=== PATIENT | male | born 1955 ===

== ENCOUNTER 2022-08-07 15:56 | Emergency (ER) | payer MEDICARE, MEDICAID, SELFPAY ==
[2022-08-07 17:06] VITALS: BP 139/68; PULSE 116; RESP 18; TEMP 38.7; O2SAT 98
--- NOTE | 2022-08-07 17:16 | DI.RAD.S_ITS ---
PROCEDURE: XR CHEST 1V INDICATIONS: suspected sepsis TECHNIQUE: One view of the chest was acquired. COMPARISON: None. FINDINGS: Surgical changes and devices: None. Lungs and pleura: Moderate airspace opacity at the left lung base. Mild patchy bilateral perihilar opacity. No pleural effusions or pneumothorax. Mediastinum: Mediastinal contours appear normal. Heart size is normal. Bones and chest wall: No suspicious bony lesions. Overlying soft tissues appear unremarkable. IMPRESSION: Bilateral pneumonia. Continued plain film surveillance is recommended to ensure resolution, and to exclude underlying or central malignancy. Dictated by: Jefe Ponce M.D. on 08/07/2022 at 18:13 Approved by: Jefe Ponce M.D. on 08/07/2022 at 18:13
[2022-08-07 17:56] VITALS: TEMP 38.4
[2022-08-07] MEDS: IBUPROFEN 400 MG TABLET 800 MG PO (17:56)
[2022-08-07 18:11] LABS: INR 1.3 (0.9-1.3); Prothrombin Time 14.8 SECONDS (10.1-12.7)
[2022-08-07 18:14] LABS: PTT Partial Thromboplastin Tim 32 SECONDS (26-36)
[2022-08-07 18:14] LABS: RBC Urine 5-10/HPF (0-5/HPF)
[2022-08-07 18:15] LABS: Alanine Aminotransferase 24 IU/L (<50); Albumin 4.5 g/dL (3.5-5.0); Albumin Globulin Ratio 1.2 (1.0-2.8); Alkaline Phosphatase 93 U/L (38-126); Aspartate Aminotransferase 24 IU/L (17-59); BUN Creatinine Ratio 15.7 (6-22); Bilirubin Total 1.3 mg/dL (0.2-1.3); Blood Urea Nitrogen 17 mg/dL (9-20); Calcium 8.9 mg/dL (8.4-10.2); Carbon Dioxide 22 mmol/L (22-32); Chloride 98 mmol/L (98-107); Estimated Glomerular Filt Rate > 60 mL/min (>60); Globulin 3.9 g/dL (1.7-4.1); Glucose 163 mg/dL (80-110); HEMOLYSIS < 15 (0-50); Lactate (Lactic Acid) 1.5 mmol/L (0.7-2.1); Lipase 28 U/L (23-300); Potassium 4.3 mmol/L (3.4-5.1); Sodium 136 mmol/L (137-145); Total Protein 8.4 g/dL (6.3-8.2)
[2022-08-07 18:15] LABS: Bacteria Urine Moderate (10-30); Culture Indicated Urine Specimen Cultured; WBC Urine >100/HPF (0-5/HPF)
[2022-08-07 18:18] LABS: Add Manual Diff / Slide Review NO; Basophils Absolute Auto 100 /uL (0-100); Basophils Percent Auto 0.2 % (0-2); Eosinophils Absolute Auto 0 /uL (0-450); Hematocrit 41.5 % (41-53); Hemoglobin 13.8 g/dL (13.5-17.5); Lymphocytes Absolute Auto 600 /uL (1100-4500); Lymphocytes Percent Auto 2.4 % (25-40); Mean Corpuscular HGB Conc 33.3 % (30-36); Mean Corpuscular Hemoglobin 29.6 PG (26-34); Mean Corpuscular Volume 88.7 fL (80-100); Monocytes Absolute Auto 700 /uL (0-900); Monocytes Percent Auto 2.8 % (3-14); Neutrophils Absolute Auto 22700 /uL (1500-7000); Neutrophils Percent Auto 94.6 % (50-75); Platelet Count 331 X10^3/uL (150-400); Red Blood Cell Count 4.68 X10^6/uL (4.5-5.9); Red Cell Distribution Width 14.4 % (11.6-14.8)
[2022-08-07 18:31] LABS: Procalcitonin 1.27 ng/mL (<0.5)
--- NOTE | 2022-08-07 21:45 | ED_ITS ---
HPI - General Adult General Chief complaint: Urogenital-Male Stated complaint: Fever, Chills, Pain while urinating Time Seen by Provider: 08/07/22 20:51 Source: patient Mode of arrival: Ambulatory Limitations: language barrier History of Present Illness HPI narrative: Patient is a 66-year-old male. Translation line was used to talk with the patient. He does speak Thai. He is here for evaluation of approximately 1 week of pain and burning with urination and chills and fevers. He denies chest pain. Denied abdominal pain. Denied nausea vomiting. Denied cough. By the time I evaluated him he had received ibuprofen in triage and he states that this improved his symptoms tremendously to the point where he was actually feeling fairly well. No skin rashes. A problems with bowel movements. No nausea or vomiting. Related Data Previous Rx's Medication Instructions Recorded levofloxacin 750 mg tablet 750 mg PO DAILY 4 days #4 tabs 08/07/22 Allergies Allergy/AdvReac Type Severity Reaction Status Date / Time No Known Drug Allergies Allergy Verified 08/07/22 17:16 Review of Systems Constitutional Constitutional: Reports system reviewed and no additional complaints, except as documented ENT Ears, Nose, Mouth, and Throat: Reports system reviewed and no additional co mplaints, except as documented Cardiovascular Cardiovascular: Reports system reviewed and no additional complaints, except as documented Respiratory Respiratory: Reports system reviewed and no additional complaints, except as documented Gastrointestinal Gastrointestinal: Reports system reviewed and no additional complaints, except as documented Genitourinary Genitourinary: Reports system reviewed and no additional complaints, except as documented Integumentary/Breasts Skin/Breast: Reports system reviewed and no additional complaints, except as documented Hematologic/Lymphatic On Anticoagulants: No Patient History Social History Smoking Status: Current every day smoker Smoking Status: Current every day smoker Substance Use Type: does not use Exam Initial Vital Signs Initial Vital Signs: Vital Signs Temperature 101.6 F H 08/07/22 17:06 Pulse Rate 116 H 08/07/22 17:06 Respiratory Rate 18 08/07/22 17:06 Blood Pressure 139/68 08/07/22 17:06 Pulse Oximetry 98 08/07/22 17:06 Oxygen Delivery Method 08/07/22 17:[address] [facility] Head: normal to inspection and normocephalic Resp Effort & Inspection: normal respiratory effort Auscultation: clear to auscultation bilaterally Cardio Rate: regular rate Rhythm: regular rhythm GI Inspection: normal to inspection and non-distended Palpation: soft and No tender Back/Spine/Pelvis Back: No CVA tenderness Skin General: no rashes or lesions noted Neuro General: patient alert, patient awake and moves all extremities Extrem General: normal to inspection and capillary refill normal Course Orders Ordered: ED Orders 08/07/22 22:44 Blood Culture Stat Discontinued Medications Sodium Chloride (Normal Saline 0.9%) 1,000 mls @ 1,000 mls/hr IV BOLUS ONE Stop: 08/07/22 18:15 Last Infusion: 08/07/22 23:17 Dose: 0 mls/hr Documented By: Admin: 08/07/22 22:21 Dose: 1,000 mls/hr Documented By: SUDEEP Ibuprofen (Ibuprofen 400 Mg Tablet) 800 mg PO NOW ONE Stop: 08/07/22 17:18 Last Admin: 08/07/22 17:56 Dose: 800 mg Documented By: STEPHANY Levofloxacin (Levofloxacin 250 Mg Tablet) 750 mg PO NOW ONE Stop: 08/07/22 20:52 Last Admin: 08/07/22 22:52 Dose: 750 mg Documented By: SUDEEP Ondansetron HCl (Ondansetron 4 Mg/2 Ml Inj) 4 mg IV NOW PRN PRN Reason: Nausea And Vomiting Ondansetron HCl (Ondansetron 4 Mg Odt) 4 mg SL NOW PRN PRN Reason: Nausea And Vomiting Vital Signs Vital signs: Vital Signs - 8 hr 08/07/22 23:07 08/07/22 23:09 Temperature 98.2 F Pulse Rate 102 H Respiratory Rate 16 Blood Pressure 112/61 Pulse Oximetry 97 Oxygen Delivery Method Room Air Medical Decision Making Lab Data Lab results reviewed: Yes I reviewed the patient's lab results. Result diagrams: 08/07/22 17:50 08/07/22 17:50 Labs: Lab Results 08/07/22 08/07/22 08/07/22 Range/Units 17:20 17:50 17:50 WBC 24.0 H (4.5-11.0) X10^3/uL RBC 4.68 (4.5-5.9) X10^6/uL Hgb 13.8 (13.5-17.5) g/dL Hct 41.5 (41-53) % MCV 88.7 (80-100) fL MCH 29.6 (26-34) PG MCHC 33.3 (30-36) % RDW 14.4 (11.6-14.8) % Plt Count 331 (150-400) X10^3/uL Neut % (Auto) 94.6 H (50-75) % Lymph % (Auto) 2.4 L (25-40) % Sullivan % (Auto) 2.8 L (3-14) % Eos % (Auto) 0.0 L (2-4) % Baso % (Auto) 0.2 (0-2) % Neut # (Auto) 58379 H (9036-2641) /uL Lymph # (Auto) 600 L (0372-8902) /uL [place] # (Auto) 700 (0-900) /uL Eos # (Auto) 0 (0-450) /uL Baso # (Auto) 100 (0-100) /uL PT 14.8 H (10.1-12.7) SECONDS INR 1.3 (0.9-1.3) APTT 32 (26-36) SECONDS Sodium (137-145) mmol/L Potassium (3.4-5.1) mmol/L Chloride (98-107) mmol/L Carbon Dioxide (22-32) mmol/L BUN (9-20) mg/dL Creatinine (0.66-1.25) mg/dL Estimated GFR (>60) mL/min BUN/Creatinine Ratio (6-22) Glucose (80-110) mg/dL Lactate (0.7-2.1) mmol/L Calcium (8.4-10.2) mg/dL Total Bilirubin (0.2-1.3) mg/dL AST (17-59) IU/L ALT (<50) IU/L Alkaline Phosphatase (38-126) U/L Total Protein (6.3-8.2) g/dL Albumin (3.5-5.0) g/dL Globulin (1.7-4.1) g/dL Albumin/Globulin Ratio (1.0-2.8) Lipase (23-300) U/L Procalcitonin (<0.5) ng/mL Urine RBC 5-10/hpf H (0-5/HPF) Urine WBC >100/hpf H (0-5/HPF) Urine Bacteria Moderate (10-30) H (None) Ur Culture Indicated? Specimen cultured 08/07/22 08/07/22 Range/Units 17:50 17:50 WBC (4.5-11.0) X10^3/uL RBC (4.5-5.9) X10^6/uL Hgb (13.5-17.5) g/dL Hct (41-53) % MCV (80-100) fL MCH (26-34) PG MCHC (30-36) % RDW (11.6-14.8) % Plt Count (150-400) X10^3/uL Neut % (Auto) (50-75) % Lymph % (Auto) (25-40) % Sullivan % (Auto) (3-14) % Eos % (Auto) (2-4) % Baso % (Auto) (0-2) % Neut # (Auto) (1290-3707) /uL Lymph # (Auto) (3330-6906) /uL Sullivan # (Auto) (0-900) /uL Eos # (Auto) (0-450) /uL Baso # (Auto) (0-100) /uL PT (10.1-12.7) SECONDS INR (0.9-1.3) APTT (26-36) SECONDS Sodium 136 L (137-145) mmol/L Potassium 4.3 (3.4-5.1) mmol/L Chloride 98 (98-107) mmol/L Carbon Dioxide 22 (22-32) mmol/L BUN 17 (9-20) mg/dL Creatinine 1.08 (0.66-1.25) mg/dL Estimated GFR > 60 (>60) mL/min BUN/Creatinine Ratio 15.7 (6-22) Glucose 163 H (80-110) mg/dL Lactate 1.5 (0.7-2.1) mmol/L Calcium 8.9 (8.4-10.2) mg/dL Total Bilirubin 1.3 (0.2-1.3) mg/dL AST 24 (17-59) IU/L ALT 24 (<50) IU/L Alkaline Phosphatase 93 (38-126) U/L Total Protein 8.4 H (6.3-8.2) g/dL Albumin 4.5 (3.5-5.0) g/dL Globulin 3.9 (1.7-4.1) g/dL Albumin/Globulin Ratio 1.2 (1.0-2.8) Lipase 28 (23-300) U/L Procalcitonin 1.27 H (<0.5) ng/mL Urine RBC (0-5/HPF) Urine WBC (0-5/HPF) Urine Bacteria (None) Ur Culture Indicated? Urine Dip Bedside Urine Glucose Negative Bedside Urine Bilirubin - Negative Bedside Urine Ketone - Negative Urine Specific [employer] [place] 1.015 Bedside Urine Occult Blood + Bedside Urine pH 6.0 Bedside Urine Protein ++ 100 Bedside Urine Urobilinogen - Negative Bedside Urine Nitrite - Negative Bedside Urine Leukocytes - Negative Esterase Point of care testing: Urine Dip Bedside Urine Glucose Negative Bedside Urine Bilirubin - Negative Bedside Urine Ketone - Negative Urine Specific [employer] [place] 1.015 Bedside Urine Occult Blood + Bedside Urine pH 6.0 Bedside Urine Protein ++ 100 Bedside Urine Urobilinogen - Negative Bedside Urine Nitrite - Negative Bedside Urine Leukocytes - Negative Esterase Imaging Data Chest x-ray: Radiologist's Impression: [place] [address] XRay Report Signed Patient: Anna Bolden MR#: [id number] : 1955 Acct:[id number] Age/Sex: 66 / M Date of Service: 08/07/22 Loc: Accession Number: [id number] ?? Procedure: XR chest 1V Ordering Provider: Aminata Wetzel D.O. PROCEDURE:? XR CHEST 1V ? INDICATIONS:? suspected sepsis ? TECHNIQUE:? One view of the chest was acquired.? ? COMPARISON:? None. ? FINDINGS:? ? Surgical changes and devices:? None.? ? Lungs and pleura:? Moderate airspace opacity at the left lung base.? Mild patchy bilateral perihilar opacity.? No pleural effusions or pneumothorax.? ? Mediastinum:? Mediastinal contours appear normal.? Heart size is normal.? ? Bones and chest wall:? No suspicious bony lesions.? Overlying soft tissues appear unremarkable.? ? IMPRESSION:? Bilateral pneumonia. Continued plain film surveillance is recommended to ensure resolution, and to exclude underlying or central malignancy.? ? ? Dictated by: Jefe Ponce M.D. on 08/07/2022 at 18:13 ? ? Approved by: Jefe Ponce M.D. on 08/07/2022 at 18:13?? MDM Narrative Medical decision making narrative: The translation line was used for my evaluation of the patient. He does state that the medication that he received in triage which was ibuprofen made him feel much better has the chills in the fevers were gone. Triage note did mention abdominal discomfort however he stated that he was not having any abdominal discomfort during my evaluation. He was having UTI like symptoms today that have been going on for the past week and he does have bacteria and white blood cells. His chest x-ray also shows signs of pneumonia however he is clear lungs and has no cough and no shortness of breath. Will discharge patient home with Levaquin as this would treat a pneumonia and also treat a urinary tract infection. Patient does have a leukocytosis but is nontoxic appearing and is tolerating oral intake. Lactate is unremarkable. Patient was given return precautions and he did expressed understanding of this. His 1st dose of antibiotics was given in the emergency department. A prescription was sent to the pharmacy of his choice. Discharge Plan Departure Patient Disposition: Home Clinical Impression: Urinary tract infection, Pneumonia Instructions: DI for Urinary Tract Infection (UTI) Activity Restrictions/Additional Instructions: Take the antibiotics as directed. They were sent to [facility]. You can take Motrin/ibuprofen or Tylenol/acetaminophen for any fevers or body aches. Return to the emergency department for any new or worsening symptoms. Prescriptions: New levofloxacin 750 mg tablet 750 mg PO DAILY 4 Days Qty: 4 0RF Stand Alone Forms: Patient Portal/API
[2022-08-07] MEDS: SODIUM CHLORIDE 0.9% 1,000 ML 1000 ML IV (22:21)
[2022-08-07] MEDS: levoFLOXacin 250 MG TABLET 750 MG PO (22:52)
[2022-08-07 23:07] VITALS: BP 112/61; PULSE 102; RESP 16; O2SAT 97
[2022-08-07 23:09] VITALS: TEMP 36.8
--- NOTE | 2022-08-09 14:17 | PC.NURSE ---
Pt's family member called stating that patient had taken all of the antibiotics at once as he didn't understand how to take them. I returned call to [phone] and there was no answer. I left a message that patient should return to ED. Dr. Eli aware of situation.
== END 2022-08-07 23:24 | disposition home or self-care (01) ==
PROVIDERS: Emergency Medicine; Emergency Provider Emergency Medicine
DX: N39.0 Urinary tract infection, site not specified (principal); J18.9 Pneumonia, unspecified organism
CPT/HCPCS: 36415; 71045; 80053; 81003; 81015; 83605; 83690; 84145; 85025; 85610; 85730; 87040; 87077; 87086; 87186; 96360; 99284

== ENCOUNTER 2022-08-10 17:31 | Observation (INO) | payer MEDICARE, MEDICAID, SELFPAY ==
[2022-08-10] VITALS (15 sets, daily range): BP systolic 104–134; BP diastolic 53–64; PULSE 74–90; RESP 17–27; TEMP 36.6; O2SAT 96–100
--- NOTE | 2022-08-10 18:06 | DI.RAD.S_ITS ---
PROCEDURE: XR CHEST 1V INDICATIONS: Evaluate for PNA TECHNIQUE: One view of the chest was acquired. COMPARISON: [facility], CR, XR CHEST 1V, 08/07/2022, 17:57. FINDINGS: Surgical changes and devices: None. Lungs and pleura: Left basilar retrocardiac consolidation is unchanged. Patchy airspace disease in the right infrahilar region is similar as well. No pleural effusions or pneumothorax. Mediastinum: Mediastinal contours appear normal. Heart size is normal. Bones and chest wall: No suspicious bony lesions. Overlying soft tissues appear unremarkable. IMPRESSION: Stable exam with bilateral airspace disease, much more prominent on the left. Dictated by: Vinay Diamond M.D. on 08/10/2022 at 18:29 Approved by: Vinay Diamond M.D. on 08/10/2022 at 18:31
[2022-08-10 18:25] LABS: Add Manual Diff / Slide Review NO; Basophils Absolute Auto 0 /uL (0-100); Basophils Percent Auto 0.4 % (0-2); Eosinophils Absolute Auto 0 /uL (0-450); Eosinophils Percent Auto 0.3 % (2-4); Hematocrit 39.9 % (41-53); Hemoglobin 13.7 g/dL (13.5-17.5); Lymphocytes Absolute Auto 600 /uL (1100-4500); Lymphocytes Percent Auto 6.5 % (25-40); Mean Corpuscular HGB Conc 34.2 % (30-36); Mean Corpuscular Hemoglobin 29.9 PG (26-34); Mean Corpuscular Volume 87.3 fL (80-100); Monocytes Absolute Auto 600 /uL (0-900); Monocytes Percent Auto 6.5 % (3-14); Neutrophils Absolute Auto 7600 /uL (1500-7000); Neutrophils Percent Auto 86.3 % (50-75); Platelet Count 221 X10^3/uL (150-400); Red Blood Cell Count 4.57 X10^6/uL (4.5-5.9); Red Cell Distribution Width 14.5 % (11.6-14.8); White Blood Cell Count 8.8 X10^3/uL (4.5-11.0)
[2022-08-10 18:33] LABS: Appearance Urine UA CLEAR; Bilirubin Urine UA NEGATIVE (NEGATIVE); Color Urine UA YELLOW; Glucose Urine UA NEGATIVE (Negative); Ketones Urine UA NEGATIVE (NEGATIVE); Leukocyte Esterase Urine UA TRACE (NEGATIVE); Nitrite Urine UA NEGATIVE (Negative); Occult Blood Urine UA 2+ (Negative); Protein Urine UA 1+ (Negative)
[2022-08-10 18:42] LABS: Lipase 41 U/L (23-300)
[2022-08-10 18:44] LABS: Alanine Aminotransferase 40 IU/L (<50); Albumin 3.6 g/dL (3.5-5.0); Albumin Globulin Ratio 0.9 (1.0-2.8); Alkaline Phosphatase 125 U/L (38-126); Aspartate Aminotransferase 41 IU/L (17-59); BUN Creatinine Ratio 15.4 (6-22); Bilirubin Total 0.7 mg/dL (0.2-1.3); Blood Urea Nitrogen 19 mg/dL (9-20); Calcium 8.3 mg/dL (8.4-10.2); Carbon Dioxide 23 mmol/L (22-32); Chloride 99 mmol/L (98-107); Estimated Glomerular Filt Rate > 60 mL/min (>60); Glucose 116 mg/dL (80-110); HEMOLYSIS < 15 (0-50); Lactate (Lactic Acid) 1.3 mmol/L (0.7-2.1); Potassium 3.5 mmol/L (3.4-5.1); Sodium 135 mmol/L (137-145); Total Protein 7.6 g/dL (6.3-8.2)
[2022-08-10 18:54] LABS: Bacteria Urine Few (2-10); Culture Indicated Urine Specimen Cultured; RBC Urine 0-1/HPF (0-5/HPF); Squamous Epithelial Cell Urine 1-5 /HPF (0-5/HPF); WBC Urine 10-30/HPF (0-5/HPF)
[2022-08-10 19:00] LABS: Procalcitonin 4.25 ng/mL (<0.5)
--- NOTE | 2022-08-10 19:51 | ED_ITS ---
HPI - General Adult General Chief complaint: Urogenital-Male Stated complaint: urinary tract infection, pneumonia Time Seen by Provider: 08/10/22 17:57 Source: patient Mode of arrival: Ambulatory Limitations: language barrier History of Present Illness HPI narrative: Patient is a 66-year-old male. Is English speaking only. Was evaluated by myself here in the emergency department several days ago. Was discharged home with a diagnosis of urinary tract infection. Was given a prescription for Levaquin. After being discharged his blood cultures resulted as positive. He was contacted a couple days ago and told to come back to the emergency department. He arrives today because that phone call. He states that overall he feels okay but is still having fevers. It appears that he took all of his antibiotics at 1 time rather than taking it 1 time a day as directed. He denies chest pain or shortness of breath. No abdominal pain. No vomiting. Language line was used for interview. Related Data Allergies Allergy/AdvReac Type Severity Reaction Status Date / Time No Known Drug Allergies Allergy Verified 08/10/22 17:52 Review of Systems Constitutional Constitutional: Reports chills, Reports fever(s) and Reports malaise Cardiovascular Cardiovascular: Denies chest pain and Denies dyspnea Respiratory Respiratory: Denies dyspnea Gastrointestinal Gastrointestinal: Denies abdominal pain and Denies vomiting Genitourinary Genitourinary: Denies dysuria Musculoskeletal Musculoskeletal: Reports myalgias Integumentary/Breasts Skin/Breast: Denies rash Hematologic/Lymphatic On Anticoagulants: No Patient History Social History Smoking Status: Current every day smoker Smoking Status: Current every day smoker alcohol intake frequency: other Substance Use Type: does not use Exam Initial Vital Signs Initial Vital Signs: Vital Signs Temperature 98 F 08/10/22 17:40 Pulse Rate 90 08/10/22 17:40 Respiratory Rate 17 08/10/22 17:40 Blood Pressure 130/62 08/10/22 17:40 Pulse Oximetry 98 08/10/22 17:40 Oxygen Delivery Method 08/10/22 17:40 Const General: cooperative, comfortable and No ill appearing HENMT Head: normal to inspection and normocephalic Resp Effort & Inspection: normal respiratory effort Auscultation: clear to auscultation bilaterally Cardio Rate: regular rate Rhythm: regular rhythm GI Inspection: normal to inspection and non-distended Palpation: soft Skin General: no rashes or lesions noted Neuro General: patient alert, patient awake and moves all extremities Extrem General: normal to inspection and capillary refill normal Psych Appearance: grossly normal and well kempt Course Orders Ordered: ED Orders 08/10/22 18:06 XR chest 1V Stat 08/10/22 18:10 Complete Blood Count AUTO DIFF Stat Comprehensive Metabolic Panel Stat Lactate (Lactic Acid) Stat Lipase Stat Procalcitonin Stat Urinalysis and Microscopic Stat Urine Culture Stat 08/10/22 18:14 EKG-12 Lead Routine EKG-12 Lead Stat 08/10/22 18:55 Blood Culture Stat Discontinued Medications Ceftriaxone Sodium 1,000 mg/ (Sodium Chloride) 100 mls @ 200 mls/hr IV NOW ONE Stop: 08/10/22 19:15 Last Infusion: 08/10/22 20:27 Dose: 0 mls/hr Documented By: Admin: 08/10/22 19:52 Dose: 200 mls/hr Documented By: ISMAEL Vital Signs Vital signs: Vital Signs - 8 hr 08/10/22 17:40 08/10/22 18:01 08/10/22 18:01 Temperature 98 F Pulse Rate 90 80 Respiratory Rate 17 22 Blood Pressure 130/62 113/57 L Pulse Oximetry 98 100 Oxygen Delivery Method Room Air 08/10/22 18:30 08/10/22 18:30 08/10/22 18:54 Temperature Pulse Rate 76 Respiratory Rate 21 Blood Pressure 104/55 L 104/53 L Pulse Oximetry 100 Oxygen Delivery Method Room Air 08/10/22 18:54 08/10/22 19:00 08/10/22 19:00 Temperature Pulse Rate 74 74 Respiratory Rate 24 21 Blood Pressure 104/55 L Pulse Oximetry 100 100 Oxygen Delivery Method 08/10/22 19:30 08/10/22 19:30 08/10/22 20:00 Temperature Pulse Rate 74 Respiratory Rate 20 Blood Pressure 113/57 L 117/58 L Pulse Oximetry 99 Oxygen Delivery Method 08/10/22 20:00 Temperature Pulse Rate 77 Respiratory Rate 17 Blood Pressure Pulse Oximetry 100 Oxygen Delivery Method Room Air Medical Decision Making Lab Data Lab results reviewed: Yes I reviewed the patient's lab results. Result diagrams: 08/10/22 18:10 08/10/22 18:10 Labs: Lab Results 08/10/22 08/10/22 08/10/22 Range/Units 18:10 18:10 18:10 WBC 8.8 (4.5-11.0) X10^3/uL RBC 4.57 (4.5-5.9) X10^6/uL Hgb 13.7 (13.5-17.5) g/dL Hct 39.9 L (41-53) % MCV 87.3 (80-100) fL MCH 29.9 (26-34) PG MCHC 34.2 (30-36) % RDW 14.5 (11.6-14.8) % Plt Count 221 (150-400) X10^3/uL Neut % (Auto) 86.3 H (50-75) % Lymph % (Auto) 6.5 L (25-40) % Sunflower % (Auto) 6.5 (3-14) % Eos % (Auto) 0.3 L (2-4) % Baso % (Auto) 0.4 (0-2) % Neut # (Auto) 7600 H (5171-1532) /uL Lymph # (Auto) 600 L (7509-0510) /uL Sunflower # (Auto) 600 (0-900) /uL Eos # (Auto) 0 (0-450) /uL Baso # (Auto) 0 (0-100) /uL Sodium 135 L (137-145) mmol/L Potassium 3.5 (3.4-5.1) mmol/L Chloride 99 (98-107) mmol/L Carbon Dioxide 23 (22-32) mmol/L BUN 19 (9-20) mg/dL Creatinine 1.23 (0.66-1.25) mg/dL Estimated GFR > 60 (>60) mL/min BUN/Creatinine Ratio 15.4 (6-22) Glucose 116 H (80-110) mg/dL Lactate 1.3 (0.7-2.1) mmol/L Calcium 8.3 L (8.4-10.2) mg/dL Total Bilirubin 0.7 (0.2-1.3) mg/dL AST 41 (17-59) IU/L ALT 40 (<50) IU/L Alkaline Phosphatase 125 (38-126) U/L Total Protein 7.6 (6.3-8.2) g/dL Albumin 3.6 (3.5-5.0) g/dL Globulin 4.0 (1.7-4.1) g/dL Albumin/Globulin Ratio 0.9 L (1.0-2.8) Lipase (23-300) U/L Procalcitonin (<0.5) ng/mL Urine Color Urine Appearance Urine pH (4.5-8.0) Ur Specific [place] (1.000-1.035) Urine Protein (Negative) Urine Glucose (UA) (Negative) g/dL Urine Ketones (NEGATIVE) Urine Occult Blood (Negative) Urine Nitrate (Negative) Urine Bilirubin (NEGATIVE) Urine Urobilinogen (0.2) E.U./dL Ur Leukocyte Esterase (NEGATIVE) Urine RBC (0-5/HPF) Urine WBC (0-5/HPF) Ur Squamous Epith Cells (0-5/HPF) Urine Bacteria (None) Ur Culture Indicated? 08/10/22 08/10/22 Range/Units 18:10 18:10 WBC (4.5-11.0) X10^3/uL RBC (4.5-5.9) X10^6/uL Hgb (13.5-17.5) g/dL Hct (41-53) % MCV (80-100) fL MCH (26-34) PG MCHC (30-36) % RDW (11.6-14.8) % Plt Count (150-400) X10^3/uL Neut % (Auto) (50-75) % Lymph % (Auto) (25-40) % Sunflower % (Auto) (3-14) % Eos % (Auto) (2-4) % Baso % (Auto) (0-2) % Neut # (Auto) (7732-9674) /uL Lymph # (Auto) (1771-7768) /uL Sunflower # (Auto) (0-900) /uL Eos # (Auto) (0-450) /uL Baso # (Auto) (0-100) /uL Sodium (137-145) mmol/L Potassium (3.4-5.1) mmol/L Chloride (98-107) mmol/L Carbon Dioxide (22-32) mmol/L BUN (9-20) mg/dL Creatinine (0.66-1.25) mg/dL Estimated GFR (>60) mL/min BUN/Creatinine Ratio (6-22) Glucose (80-110) mg/dL Lactate (0.7-2.1) mmol/L Calcium (8.4-10.2) mg/dL Total Bilirubin (0.2-1.3) mg/dL AST (17-59) IU/L ALT (<50) IU/L Alkaline Phosphatase (38-126) U/L Total Protein (6.3-8.2) g/dL Albumin (3.5-5.0) g/dL Globulin (1.7-4.1) g/dL Albumin/Globulin Ratio (1.0-2.8) Lipase 41 (23-300) U/L Procalcitonin 4.25 H (<0.5) ng/mL Urine Color Yellow Urine Appearance Clear Urine pH 6.0 (4.5-8.0) Ur Specific [place] 1.010 (1.000-1.035) Urine Protein 1+ H (Negative) Urine Glucose (UA) Negative (Negative) g/dL Urine Ketones Negative (NEGATIVE) Urine Occult Blood 2+ H (Negative) Urine Nitrate Negative (Negative) Urine Bilirubin Negative (NEGATIVE) Urine Urobilinogen 1.0 (0.2) E.U./dL Ur Leukocyte Esterase Trace H (NEGATIVE) Urine RBC 0-1/hpf (0-5/HPF) Urine WBC 10-30/hpf H (0-5/HPF) Ur Squamous Epith Cells 1-5 /hpf (0-5/HPF) Urine Bacteria Few (2-10) H (None) Ur Culture Indicated? Specimen cultured Imaging Data Chest x-ray: Radiologist's Impression: [address] [address] XRay Report Signed Patient: Anna Bolden MR#: [id number] : 1955 Acct:[id number] Age/Sex: 66 / M Date of Service: 08/10/22 Loc: ED Accession Number: [id number] ?? Procedure: XR chest 1V Ordering Provider: Jorge L Kaur D.O. PROCEDURE:? XR CHEST 1V ? INDICATIONS:? Evaluate for PNA ? TECHNIQUE:? One view of the chest was acquired.? ? COMPARISON:? [facility], CR, XR CHEST 1V, 08/07/2022, 17:57. ? FINDINGS:? ? Surgical changes and devices:? None.? ? Lungs and pleura:? Left basilar retrocardiac consolidation is unchanged.? Patchy airspace disease in the right infrahilar region is similar as well.? No pleural effusions or pneumothorax.? ? Mediastinum:? Mediastinal contours appear normal.? Heart size is normal.? ? Bones and chest wall:? No suspicious bony lesions.? Overlying soft tissues appear unremarkable.? ? IMPRESSION:? Stable exam with bilateral airspace disease, much more prominent on the left. ? ? Dictated by: Vinay Diamond M.D. on 08/10/2022 at 18:29 ? ? Approved by: Vinay Diamond M.D. on 08/10/2022 at 18:31? ECG Data Attestation: I personally reviewed and interpreted this ECG as follows: Interpretation: Sinus rhythm Ventricular rate is 77 Normal axis Normal QRS Normal QTC No ST T wave changes MDM Narrative Medical decision making narrative: Patient's white blood cell count has improved but still has an elevated procalcitonin is still having chills and fevers and body aches. Were all he does appear well but given his positive blood cultures admission to the hospital his required for IV antibiotics. The translation line was used for this and he expressed understanding. Discussed the case with Dr. Ballard who will admit for further evaluation and treatment. Discharge Plan Departure Patient Disposition: Admitted As Inpatient Clinical Impression: Urinary tract infection, Bacteremia Admit Date/Time: 08/10/22 20:29 Admit Provider: Hung Ballard
[2022-08-10] MEDS: cefTRIAXone 1,000 MG in SODIUM CHLORIDE 0.9% 100 ML 200 MG IV (19:52)
--- NOTE | 2022-08-10 21:00 | PM.HP.1 ---
History of Present Illness History of Present Illness Date Patient Seen: 08/10/22 Time Patient Seen: 21:00 Chief complaint: urinary tract infection, pneumonia Narrative: Mr. Bolden is a 66M who denies significant PMH who presents back to the hospital for positive blood cultures. He presented to the hospital a few days ago with dysuria, fever, chills. He was diagnosed with a UTI and was discharged with antibiotics. After leaving his blood culture turned back positive, was was whiting sensitive E. coli, and phone message was left for him. Apparently after discharged the patient misunderstood how much antibiotic he was supposed to take, and took all the antibiotic at one time. He presents now due to the request to return back. He was continued to have some fevers/chills. Dysuria is improved. No abdominal pain, nausea or vomiting. No shortness of breath. In the ED workup was done, vitals notable for Tmax 101.6, vitals otherwise normal. Labs notable for WBC 8.8, hgb 13.7, plts 221. Creatinine 1.23. Procal 4.25. UA with bacteria, WBC, and leuk esterase. Chest xray with bilateral airspace disease. He was given ceftriaxone and admitted for further treatment Medical history: denies any medical problems Social history: smokes cigarettes daily Family history: denies any cardiac or pulmonary disease in the family Patient History Family & Social History Safety & Behavioral: Feels Safe in Current Yes Environment Been Physically Hurt or No Threatened By a Person Tobacco & Substance use: Smoking Status Current every day smoker alcohol intake frequency other Substance Use Type does not use Meds Home Medications and Allergies Allergies Allergy/AdvReac Type Severity Reaction Status Date / Time No Known Drug Allergies Allergy Verified 08/10/22 17:52 Review of Systems Review of Systems Narrative: 14 ystems reviewed and negative aisde from what is noted in HPI Exam Vital Signs (past 8 hours): - 08/10/22 17:40 08/10/22 18:01 08/10/22 18:01 Temperature 98 F Pulse Rate 90 80 Respiratory Rate 17 22 Blood Pressure 130/62 113/57 L Pulse Oximetry 98 100 Oxygen Delivery Method Room Air 08/10/22 18:30 08/10/22 18:30 08/10/22 18:54 Temperature Pulse Rate 76 Respiratory Rate 21 Blood Pressure 104/55 L 104/53 L Pulse Oximetry 100 Oxygen Delivery Method Room Air 08/10/22 18:54 08/10/22 19:00 08/10/22 19:00 Temperature Pulse Rate 74 74 Respiratory Rate 24 21 Blood Pressure 104/55 L Pulse Oximetry 100 100 Oxygen Delivery Method 08/10/22 19:30 08/10/22 19:30 08/10/22 20:00 Temperature Pulse Rate 74 Respiratory Rate 20 Blood Pressure 113/57 L 117/58 L Pulse Oximetry 99 Oxygen Delivery Method 08/10/22 20:00 08/10/22 20:30 08/10/22 20:31 Temperature Pulse Rate 77 82 83 Respiratory Rate 17 23 27 H Blood Pressure Pulse Oximetry 100 99 99 Oxygen Delivery Method Room Air 08/10/22 20:31 08/10/22 21:00 08/10/22 21:00 Temperature Pulse Rate 77 Respiratory Rate 19 Blood Pressure 121/58 L 134/61 Pulse Oximetry 99 Oxygen Delivery Method 08/10/22 21:30 08/10/22 21:30 08/10/22 22:00 Temperature Pulse Rate 79 Respiratory Rate 20 Blood Pressure 117/62 122/58 L Pulse Oximetry 98 Oxygen Delivery Method 08/10/22 22:00 08/10/22 22:30 08/10/22 22:30 Temperature Pulse Rate 79 79 Respiratory Rate 21 18 Blood Pressure 118/59 L Pulse Oximetry 98 98 Oxygen Delivery Method Oxygen Delivery Method Room Air Narrative Exam Narrative: GEN: no acute distress HEENT: moist mucous membranes, PERRL NECK: trachea midline, no JVD PULM: clear bilaterally, no wheezes, rhonchi, rales CV: regular rate and rhythm, no murmurs ABD: soft, nontender, nondistended, no organomegaly, normal bowel sounds EXT: warm and well perfused with no edema NEURO: awake, alert, oriented, no focal deficits Objective Labs Result Diagrams: 08/10/22 18:10 08/10/22 18:10 Labs: Laboratory Results - last 24 hr 08/10/22 08/10/22 08/10/22 18:10 18:10 18:10 WBC 8.8 RBC 4.57 Hgb 13.7 Hct 39.9 L MCV 87.3 MCH 29.9 MCHC 34.2 RDW 14.5 Plt Count 221 Neut % (Auto) 86.3 H Lymph % (Auto) 6.5 L [place] % (Auto) 6.5 Eos % (Auto) 0.3 L Baso % (Auto) 0.4 Neut # (Auto) 7600 H Lymph # (Auto) 600 L [place] # (Auto) 600 Eos # (Auto) 0 Baso # (Auto) 0 Sodium 135 L Potassium 3.5 Chloride 99 Carbon Dioxide 23 BUN 19 Creatinine 1.23 Estimated GFR > 60 BUN/Creatinine Ratio 15.4 Glucose 116 H Lactate 1.3 Calcium 8.3 L Total Bilirubin 0.7 AST 41 ALT 40 Alkaline Phosphatase 125 Total Protein 7.6 Albumin 3.6 Globulin 4.0 Albumin/Globulin Ratio 0.9 L Lipase Procalcitonin Urine Color Urine Appearance Urine pH Ur Specific [place] Urine Protein Urine Glucose (UA) Urine Ketones Urine Occult Blood Urine Nitrate Urine Bilirubin Urine Urobilinogen Ur Leukocyte Esterase Urine RBC Urine WBC Ur Squamous Epith Cells Urine Bacteria Ur Culture Indicated? SARS-CoV-2 (PCR) 08/10/22 08/10/22 08/10/22 18:10 18:10 20:40 WBC RBC Hgb Hct MCV MCH MCHC RDW Plt Count Neut % (Auto) Lymph % (Auto) [place] % (Auto) Eos % (Auto) Baso % (Auto) Neut # (Auto) Lymph # (Auto) [place] # (Auto) Eos # (Auto) Baso # (Auto) Sodium Potassium Chloride Carbon Dioxide BUN Creatinine Estimated GFR BUN/Creatinine Ratio Glucose Lactate Calcium Total Bilirubin AST ALT Alkaline Phosphatase Total Protein Albumin Globulin Albumin/Globulin Ratio Lipase 41 Procalcitonin 4.25 H Urine Color Yellow Urine Appearance Clear Urine pH 6.0 Ur Specific [place] 1.010 Urine Protein 1+ H Urine Glucose (UA) Negative Urine Ketones Negative Urine Occult Blood 2+ H Urine Nitrate Negative Urine Bilirubin Negative Urine Urobilinogen 1.0 Ur Leukocyte Esterase Trace H Urine RBC 0-1/hpf Urine WBC 10-30/hpf H Ur Squamous Epith Cells 1-5 /hpf Urine Bacteria Few (2-10) H Ur Culture Indicated? Specimen cultured SARS-CoV-2 (PCR) Negative Assessment & Plan Assessment & Plan narrative: 1. E. coli with UTI bacteremia -patient with fever on admission, rising procalcitonin from a few days ago -leukocytosis is improved -was discharged on appropriate antibiotic, but mistakenly was taken incorrectly -urine culture and blood culture resent -continue ceftriaxone -once defervesces can likely transition to oral antibiotics for 7-14 day course for bacteremia 2. Active smoker -encouraged cessation -follow up as outpatient CODE: Full Proxy: Wing Situ, friend I have utilized all available resources to reconcile the patient's home medications. Time Spent With Patient Critical Care time: I spent a total of [] minutes of critical care time on this patient's care today; this time is exclusive of procedural time.
[2022-08-10 21:09] LABS: COVID19 -Nasal RAPID Negative (Negative)
[2022-08-11] VITALS (22 sets, daily range): BP systolic 104–121; BP diastolic 55–62; PULSE 66–88; RESP 14–21; TEMP 36.2–36.6; O2SAT 95–98; BMI 22.8
[2022-08-11 06:36] LABS: Add Manual Diff / Slide Review NO; Basophils Absolute Auto 0 /uL (0-100); Basophils Percent Auto 0.4 % (0-2); Eosinophils Absolute Auto 0 /uL (0-450); Eosinophils Percent Auto 0.2 % (2-4); Hemoglobin 12.2 g/dL (13.5-17.5); Lymphocytes Absolute Auto 800 /uL (1100-4500); Lymphocytes Percent Auto 11.3 % (25-40); Mean Corpuscular HGB Conc 33.8 % (30-36); Mean Corpuscular Hemoglobin 29.5 PG (26-34); Mean Corpuscular Volume 87.2 fL (80-100); Monocytes Absolute Auto 800 /uL (0-900); Monocytes Percent Auto 11.2 % (3-14); Neutrophils Absolute Auto 5700 /uL (1500-7000); Neutrophils Percent Auto 76.9 % (50-75); Platelet Count 203 X10^3/uL (150-400); Red Blood Cell Count 4.13 X10^6/uL (4.5-5.9); Red Cell Distribution Width 14.2 % (11.6-14.8); White Blood Cell Count 7.4 X10^3/uL (4.5-11.0)
[2022-08-11 06:52] LABS: BUN Creatinine Ratio 15.2 (6-22); Blood Urea Nitrogen 16 mg/dL (9-20); Calcium 7.7 mg/dL (8.4-10.2); Carbon Dioxide 20 mmol/L (22-32); Chloride 105 mmol/L (98-107); Estimated Glomerular Filt Rate > 60 mL/min (>60); Glucose 90 mg/dL (80-110); HEMOLYSIS < 15 (0-50); Potassium 3.7 mmol/L (3.4-5.1); Sodium 134 mmol/L (137-145)
--- NOTE | 2022-08-11 07:36 | P.PN_ITS ---
Exam Vital Signs (past 8 hours): - 08/11/22 00:00 08/11/22 00:00 08/11/22 00:30 Pulse Rate 78 Respiratory Rate 14 Blood Pressure 112/58 L 110/58 L Pulse Oximetry 97 08/11/22 00:30 08/11/22 01:00 08/11/22 01:00 Pulse Rate 76 77 Respiratory Rate 17 21 Blood Pressure 107/55 L Pulse Oximetry 96 97 08/11/22 01:30 08/11/22 01:30 08/11/22 02:00 Pulse Rate 75 Respiratory Rate 21 Blood Pressure 111/58 L 114/57 L Pulse Oximetry 97 08/11/22 02:00 08/11/22 02:30 08/11/22 02:30 Pulse Rate 77 72 Respiratory Rate 20 21 Blood Pressure 121/59 L Pulse Oximetry 97 97 08/11/22 03:00 08/11/22 03:00 08/11/22 03:30 Pulse Rate 71 Respiratory Rate 19 Blood Pressure 116/57 L 107/55 L Pulse Oximetry 96 08/11/22 03:30 08/11/22 04:00 08/11/22 04:00 Pulse Rate 69 77 Respiratory Rate 19 21 Blood Pressure 111/61 Pulse Oximetry 96 97 08/11/22 04:30 08/11/22 05:00 08/11/22 05:30 Pulse Rate 70 75 75 Respiratory Rate 20 19 18 Blood Pressure Pulse Oximetry 95 96 97 08/11/22 06:00 08/11/22 06:00 08/11/22 06:30 Pulse Rate 68 88 Respiratory Rate 19 Blood Pressure 110/59 L Pulse Oximetry 97 97 08/11/22 07:00 Pulse Rate 73 Respiratory Rate 17 Blood Pressure Pulse Oximetry 98 Oxygen Delivery Method Room Air Narrative Exam Narrative: GEN: no acute distress HEENT: moist mucous membranes, PERRL NECK: trachea midline, no JVD PULM: clear bilaterally, no wheezes, rhonchi, rales CV: regular rate and rhythm, no murmurs ABD: soft, nontender, nondistended, no organomegaly, normal bowel sounds EXT: warm and well perfused with no edema NEURO: awake, alert, oriented, no focal deficits Objective Labs Result Diagrams: 08/11/22 06:26 08/11/22 06:26 Labs: Laboratory Results - last 24 hr 08/10/22 08/10/22 08/10/22 18:10 18:10 18:10 WBC 8.8 RBC 4.57 Hgb 13.7 Hct 39.9 L MCV 87.3 MCH 29.9 MCHC 34.2 RDW 14.5 Plt Count 221 Neut % (Auto) 86.3 H Lymph % (Auto) 6.5 L [place] % (Auto) 6.5 Eos % (Auto) 0.3 L Baso % (Auto) 0.4 Neut # (Auto) 7600 H Lymph # (Auto) 600 L [place] # (Auto) 600 Eos # (Auto) 0 Baso # (Auto) 0 Sodium 135 L Potassium 3.5 Chloride 99 Carbon Dioxide 23 BUN 19 Creatinine 1.23 Estimated GFR > 60 BUN/Creatinine Ratio 15.4 Glucose 116 H Lactate 1.3 Calcium 8.3 L Total Bilirubin 0.7 AST 41 ALT 40 Alkaline Phosphatase 125 Total Protein 7.6 Albumin 3.6 Globulin 4.0 Albumin/Globulin Ratio 0.9 L Lipase Procalcitonin Urine Color Urine Appearance Urine pH Ur Specific [place] Urine Protein Urine Glucose (UA) Urine Ketones Urine Occult Blood Urine Nitrate Urine Bilirubin Urine Urobilinogen Ur Leukocyte Esterase Urine RBC Urine WBC Ur Squamous Epith Cells Urine Bacteria Ur Culture Indicated? SARS-CoV-2 (PCR) 08/10/22 08/10/22 08/10/22 18:10 18:10 20:40 WBC RBC Hgb Hct MCV MCH MCHC RDW Plt Count Neut % (Auto) Lymph % (Auto) [place] % (Auto) Eos % (Auto) Baso % (Auto) Neut # (Auto) Lymph # (Auto) [place] # (Auto) Eos # (Auto) Baso # (Auto) Sodium Potassium Chloride Carbon Dioxide BUN Creatinine Estimated GFR BUN/Creatinine Ratio Glucose Lactate Calcium Total Bilirubin AST ALT Alkaline Phosphatase Total Protein Albumin Globulin Albumin/Globulin Ratio Lipase 41 Procalcitonin 4.25 H Urine Color Yellow Urine Appearance Clear Urine pH 6.0 Ur Specific [place] 1.010 Urine Protein 1+ H Urine Glucose (UA) Negative Urine Ketones Negative Urine Occult Blood 2+ H Urine Nitrate Negative Urine Bilirubin Negative Urine Urobilinogen 1.0 Ur Leukocyte Esterase Trace H Urine RBC 0-1/hpf Urine WBC 10-30/hpf H Ur Squamous Epith Cells 1-5 /hpf Urine Bacteria Few (2-10) H Ur Culture Indicated? Specimen cultured SARS-CoV-2 (PCR) Negative 08/11/22 08/11/22 06:26 06:26 WBC 7.4 RBC 4.13 L Hgb 12.2 L Hct 36.0 L MCV 87.2 MCH 29.5 MCHC 33.8 RDW 14.2 Plt Count 203 Neut % (Auto) 76.9 H Lymph % (Auto) 11.3 L [place] % (Auto) 11.2 Eos % (Auto) 0.2 L Baso % (Auto) 0.4 Neut # (Auto) 5700 Lymph # (Auto) 800 L [place] # (Auto) 800 Eos # (Auto) 0 Baso # (Auto) 0 Sodium 134 L Potassium 3.7 Chloride 105 Carbon Dioxide 20 L BUN 16 Creatinine 1.05 Estimated GFR > 60 BUN/Creatinine Ratio 15.2 Glucose 90 Lactate Calcium 7.7 L Total Bilirubin AST ALT Alkaline Phosphatase Total Protein Albumin Globulin Albumin/Globulin Ratio Lipase Procalcitonin Urine Color Urine Appearance Urine pH Ur Specific [place] Urine Protein Urine Glucose (UA) Urine Ketones Urine Occult Blood Urine Nitrate Urine Bilirubin Urine Urobilinogen Ur Leukocyte Esterase Urine RBC Urine WBC Ur Squamous Epith Cells Urine Bacteria Ur Culture Indicated? SARS-CoV-2 (PCR) [facility] Social History Smoking Status: Current every day smoker Assessment & Plan Assessment & Plan narrative: 1. E. coli with UTI bacteremia -patient with fever on admission, rising procalcitonin from a few days ago -leukocytosis is improved -was discharged on appropriate antibiotic, but mistakenly was taken incorrectly -urine culture and blood culture resent -continue ceftriaxone -once defervesces can likely transition to oral antibiotics for 7-14 day course for bacteremia 2. Active smoker -encouraged cessation -follow up as outpatient CODE: Full Proxy: Wing Situ, friend I have utilized all available resources to reconcile the patient's home medications. Time Spent With Patient Critical Care time: I spent a total of [] minutes of critical care time on this patient's care today; this time is exclusive of procedural time.
--- NOTE | 2022-08-11 07:43 | DI.US.S_ITS ---
PROCEDURE: US RENAL COMPLETE INDICATIONS: PYELONEPHRITIS TECHNIQUE: Real-time scanning was performed of the kidneys and bladder, with image documentation. COMPARISON: None. FINDINGS: Kidneys: Kidneys are normal in size. Right kidney measures 10.9 cm long; left kidney measures 11.1 cm long. Right renal cortical thickness is 2.0 cm; left renal cortical thickness is 2.3 cm. Renal cortical echotexture is normal. No hydronephrosis or nephrolithiasis. No suspicious solid mass lesions. Bladder: Pre-void bladder volume is 219 mL. Post-void residual is 0 mL. Pre-void images demonstrate no intraluminal masses or stones. On pre-void images, neither ureteral jets are noted with color Doppler interrogation. (Of note, ureteral jets may not be detectable in up to 25% of cases due to insufficient differences in specific gravity between ureteral and bladder urine). Miscellaneous: No free pelvic fluid. IMPRESSION: Unremarkable ultrasound the kidneys. No hydronephrosis Approved by: Stanislav Miranda M.D. on 08/11/2022 at 14:53
[2022-08-11] MEDS: cefTRIAXone 2,000 MG in SODIUM CHLORIDE 0.9% 100 ML 200 MG IV (08:49)
--- NOTE | 2022-08-11 14:07 | CM.DANOTE ---
Initial DCP Assessment Note Pt is a 66 yo male, resident of [place], presented to the ER 08.07.22, UTI+, prescribed antibiotics- which he took all at once instead of over 4 days as prescribed. Patient's blod culture came back + 08.09.22, attempted contact w/patient by phone Patient admitted observation for management of E. coli with UTI bacteremia. Hospitalist considering DC home today or tomorrow PCP: Not Listed Payer: Self Pay Reviewed chart, pt discussed in multidisciplinary rounds this morning. Potential for discharge home w/friend this evening depending on patient's improvement Initial assessment completed w/information available on chart today. Patient speaks only [place]an. No barriers identified at this time to patient's safe discharge home w/family to assist; close outpatient f/u recommended nearer to patient's home in [place]. ISAIAS Cortes Discharge Planning/Care Management CM Discharge Assessment Start: 08/11/22 14:03 Freq: Status: Active Protocol: Document 08/11/22 14:04 NAIMA (Rec: 08/11/22 14:07 NAIMA [id number]) Discharge Planning Assessment Assigned Tax Examining Technician ISAIAS Ross DPOA/Assigned Designee Name Friend Wing Mays (family lives in [place] Resident Contact Information [phone] Advance Directives? No History Provided By Medical Record Comment Patient expected to discharge home this evening w/local friend then back home to [place]. Language line required if patient stays and addtl assessment of needs needed. Patient speaks only [place]an Independent with ADL's Yes Is patient alert and oriented? Yes Barriers to Discharge No Comment Patient indp, expected to return home w/family and friends once medically cleared Discharge Plan Home Transportation Arrangement Friend Referrals Initiated None needed
--- NOTE | 2022-08-11 17:21 | PM.DS.1 ---
History of Present Illness History of Present Illness Date Patient Seen: 08/11/22 Time Patient Seen: 17:34 Chief complaint: urinary tract infection, pneumonia Narrative: Mr. Bolden is a 66M who denies significant PMH who presents back to the hospital for positive blood cultures. He presented to the hospital a few days ago with dysuria, fever, chills. He was diagnosed with a UTI and was discharged with antibiotics. After leaving his blood culture turned back positive, was was whiting sensitive E. coli, and phone message was left for him. Apparently after discharged the patient misunderstood how much antibiotic he was supposed to take, and took all the antibiotic at one time. He presents now due to the request to return back. He was continued to have some fevers/chills. Dysuria is improved. No abdominal pain, nausea or vomiting. No shortness of breath. In the ED workup was done, vitals notable for Tmax 101.6, vitals otherwise normal. Labs notable for WBC 8.8, hgb 13.7, plts 221. Creatinine 1.23. Procal 4.25. UA with bacteria, WBC, and leuk esterase. Chest xray with bilateral airspace disease. He was given ceftriaxone and admitted for further treatment Medical history: denies any medical problems Social history: smokes cigarettes daily Family history: denies any cardiac or pulmonary disease in the family Discharge Providers Provider Date of admission: 08/10/22 20:29 Discharge Date: 08/11/22 Discharge provider: Vinod Cuevas DO Summary Hospital Course Discharge Diagnosis: 1. E. coli with UTI bacteremia -leukocytosis resolved, afebrile -was discharged on appropriate antibiotic, but mistakenly was taken incorrectly -urine culture no growth, repeat blood culture not back yet but won't private branch exchange service advisor. Previous blood culture with pansensitive E. coli. -received ceftriaxone then put back on po levaquin x6 days to complete 1 week course -renal US negative for stones or hydronephrosis 2. Active smoker -encouraged cessation -follow up as outpatient Hospital Course: Admitted for UTI/e. coli bacteremia which was diagnosed a few days ago in ED and sent home on levaquin which he mistakenly took all at once as he was confused likely due to language barrier. He represented to the ED and repeat urine and blood cultures taken. Urine cultures had no growth and blood cultures not back yet but prior cultures showed sensitivity to levaquin so he was put back on this for 6 more days to complete 1 week. He understood to take the pills once per day this time. A renal US was done to rule out kidney stones or hydronephrosis as possible cause of pyelo. Time Spent with Patient Time spent: Greater than 30 minutes Exam Vital Signs (past 8 hours): - 08/11/22 12:00 08/11/22 15:00 Temperature 97.8 F Pulse Rate 80 Respiratory Rate 18 Blood Pressure 104/55 L Pulse Oximetry 95 97 Oxygen Delivery Method Room Air Oxygen Flow Rate 0 Oxygen Delivery Method Room Air Oxygen Flow Rate 0 Narrative Exam Narrative: GEN: no acute distress HEENT: moist mucous membranes, PERRL NECK: trachea midline, no JVD PULM: clear bilaterally, no wheezes, rhonchi, rales CV: regular rate and rhythm, no murmurs ABD: soft, nontender, nondistended, no organomegaly, normal bowel sounds EXT: warm and well perfused with no edema NEURO: awake, alert, oriented, no focal deficits Objective Labs Result Diagrams: 08/11/22 06:26 08/11/22 06:26 Labs: Laboratory Results - last 24 hr 08/10/22 08/10/22 08/10/22 18:10 18:10 18:10 WBC 8.8 RBC 4.57 Hgb 13.7 Hct 39.9 L MCV 87.3 MCH 29.9 MCHC 34.2 RDW 14.5 Plt Count 221 Neut % (Auto) 86.3 H Lymph % (Auto) 6.5 L [place] % (Auto) 6.5 Eos % (Auto) 0.3 L Baso % (Auto) 0.4 Neut # (Auto) 7600 H Lymph # (Auto) 600 L [place] # (Auto) 600 Eos # (Auto) 0 Baso # (Auto) 0 Sodium 135 L Potassium 3.5 Chloride 99 Carbon Dioxide 23 BUN 19 Creatinine 1.23 Estimated GFR > 60 BUN/Creatinine Ratio 15.4 Glucose 116 H Lactate 1.3 Calcium 8.3 L Total Bilirubin 0.7 AST 41 ALT 40 Alkaline Phosphatase 125 Total Protein 7.6 Albumin 3.6 Globulin 4.0 Albumin/Globulin Ratio 0.9 L Lipase Procalcitonin Urine Color Urine Appearance Urine pH Ur Specific [place] Urine Protein Urine Glucose (UA) Urine Ketones Urine Occult Blood Urine Nitrate Urine Bilirubin Urine Urobilinogen Ur Leukocyte Esterase Urine RBC Urine WBC Ur Squamous Epith Cells Urine Bacteria Ur Culture Indicated? SARS-CoV-2 (PCR) 08/10/22 08/10/22 08/10/22 18:10 18:10 20:40 WBC RBC Hgb Hct MCV MCH MCHC RDW Plt Count Neut % (Auto) Lymph % (Auto) [place] % (Auto) Eos % (Auto) Baso % (Auto) Neut # (Auto) Lymph # (Auto) [place] # (Auto) Eos # (Auto) Baso # (Auto) Sodium Potassium Chloride Carbon Dioxide BUN Creatinine Estimated GFR BUN/Creatinine Ratio Glucose Lactate Calcium Total Bilirubin AST ALT Alkaline Phosphatase Total Protein Albumin Globulin Albumin/Globulin Ratio Lipase 41 Procalcitonin 4.25 H Urine Color Yellow Urine Appearance Clear Urine pH 6.0 Ur Specific [place] 1.010 Urine Protein 1+ H Urine Glucose (UA) Negative Urine Ketones Negative Urine Occult Blood 2+ H Urine Nitrate Negative Urine Bilirubin Negative Urine Urobilinogen 1.0 Ur Leukocyte Esterase Trace H Urine RBC 0-1/hpf Urine WBC 10-30/hpf H Ur Squamous Epith Cells 1-5 /hpf Urine Bacteria Few (2-10) H Ur Culture Indicated? Specimen cultured SARS-CoV-2 (PCR) Negative 08/11/22 08/11/22 06:26 06:26 WBC 7.4 RBC 4.13 L Hgb 12.2 L Hct 36.0 L MCV 87.2 MCH 29.5 MCHC 33.8 RDW 14.2 Plt Count 203 Neut % (Auto) 76.9 H Lymph % (Auto) 11.3 L [place] % (Auto) 11.2 Eos % (Auto) 0.2 L Baso % (Auto) 0.4 Neut # (Auto) 5700 Lymph # (Auto) 800 L [place] # (Auto) 800 Eos # (Auto) 0 Baso # (Auto) 0 Sodium 134 L Potassium 3.7 Chloride 105 Carbon Dioxide 20 L BUN 16 Creatinine 1.05 Estimated GFR > 60 BUN/Creatinine Ratio 15.2 Glucose 90 Lactate Calcium 7.7 L Total Bilirubin AST ALT Alkaline Phosphatase Total Protein Albumin Globulin Albumin/Globulin Ratio Lipase Procalcitonin Urine Color Urine Appearance Urine pH Ur Specific [place] Urine Protein Urine Glucose (UA) Urine Ketones Urine Occult Blood Urine Nitrate Urine Bilirubin Urine Urobilinogen Ur Leukocyte Esterase Urine RBC Urine WBC Ur Squamous Epith Cells Urine Bacteria Ur Culture Indicated? SARS-CoV-2 (PCR) PFSH Social History Smoking Status: Current every day smoker alcohol intake: never Discharge Plan Discharge Plan Patient Disposition: Home Nursing Discharge Comment: return to ER/call 911 if any urinary symptoms return. monitor your fluid intake, make sure youre drinking enough water thru the day. take the medications as ordered follow up w/ your primary physician w/in 7-10 days. i hope you have a good rest of your day, it was a pleasure to be your nurse today. take care of yourself! Discharge orders & Medications Prescriptions: New levofloxacin 750 mg tablet 750 mg PO DAILY 6 Days Qty: 6 0RF Rx Instructions: start on 08/12 Visit Report/Discharge Packet Stand Alone Forms: Patient Portal/API, Stroke Signs & Symptoms Discharge Data Attending Provider: Hung Ballard
== END 2022-08-11 16:30 | disposition home or self-care (01) ==
LOC: ED 19:52 → AC 20:30
PROVIDERS: Admitting Provider Internal Medicine; Emergency Provider Emergency Medicine; Visit Provider Internal Medicine
DX: N39.0 Urinary tract infection, site not specified (principal); R78.81 Bacteremia; B96.20 Unspecified Escherichia coli [E. coli] as the cause of diseases classified elsewhere; F17.210 Nicotine dependence, cigarettes, uncomplicated; Z20.822 Contact with and (suspected) exposure to COVID-19
CPT/HCPCS: 36415; 71045; 76770; 80048; 80053; 81001; 83605; 83690; 84145; 85025; 87040; 87086; 87635; 93005; 96365; 96366; 99284; C9803; G0378; J0696